=== PATIENT | male | born 1940 ===

== ENCOUNTER 2023-04-20 06:00 | Outpatient (RCR) | payer MEDICARE, SELFPAY | END 2023-05-15 23:59 | disposition home or self-care (01) | LOC: GPT 06:00 | PROVIDERS: Family Provider Family Medicine; Visit Provider Student in an Organized Health Care Education/Training Program | DX: M54.9 Dorsalgia, unspecified (principal) | CPT/HCPCS: 97032; 97110; 97140; 97161; 97530 ==

== ENCOUNTER 2023-05-16 06:00 | Outpatient (RCR) | payer MEDICARE, SELFPAY | END 2023-05-25 23:59 | disposition home or self-care (01) | LOC: GPT 06:00 | PROVIDERS: PCP Family Medicine; Visit Provider Student in an Organized Health Care Education/Training Program | DX: M54.9 Dorsalgia, unspecified (principal) | CPT/HCPCS: 97110; 97164; 97530 ==